=== PATIENT | female | born 2000 | race Two or more races ===

== ENCOUNTER 2025-02-15 12:34 | Emergency (ER) | payer MEDICAID ==
[~2025-02-15] VITALS: Ht 162.6 cm; Wt 68.0 kg
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
[2025-02-15 14:39] VITALS: BP 116/75; PULSE 82; RESP 16; TEMP 98.2; O2SAT 99
== END 2025-02-15 14:45 | disposition home or self-care (01) ==
LOC: ER 12:34
DX: S46.912A Strain of unspecified muscle, fascia and tendon at shoulder and upper arm level, left arm, initial encounter (principal); S16.1XXA Strain of muscle, fascia and tendon at neck level, initial encounter; Z90.49 Acquired absence of other specified parts of digestive tract; V43.52XA Car driver injured in collision with other type car in traffic accident, initial encounter; Y93.89 Activity, other specified; Y92.488 Other paved roadways as the place of occurrence of the external cause; Y99.8 Other external cause status
CPT/HCPCS: 72040; 73030